=== PATIENT | male | born 1995 | race Caucasian/White ===

== ENCOUNTER 2018-11-22 15:33 | Emergency (ER) | payer OTHER ==
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
[2018-11-22] MEDS ORDERED: IBUPROFEN PO ONE (17:49)
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
--- NOTE | 2018-11-22 18:14 | XRay Report ---
XR spine cervical 2-3V INDICATION / CLINICAL INFORMATION: neck pain. COMPARISON: None available. FINDINGS: BONES/JOINT(S): No vertebral fracture. No significant degenerative changes. Overall normal alignment. SOFT TISSUES: No significant abnormality. ADDITIONAL FINDINGS: None. Signer Name: Dimas Bender MD Signed: 11/22/2018 6:10 PM Workstation Name: [id number]
[2018-11-22 18:28] VITALS: BP 118/50
== END 2018-11-22 18:27 | disposition home or self-care (01) ==
LOC: ED 15:33
DX: S13.4XXA Sprain of ligaments of cervical spine, initial encounter (principal); S39.012A Strain of muscle, fascia and tendon of lower back, initial encounter; Z79.1 Long term (current) use of non-steroidal anti-inflammatories (NSAID); V89.2XXA Person injured in unspecified motor-vehicle accident, traffic, initial encounter; Y93.89 Activity, other specified; Y92.488 Other paved roadways as the place of occurrence of the external cause; Y99.8 Other external cause status
CPT/HCPCS: 72040; 72100; 99283